=== PATIENT | female | born 1965 | race Caucasian/White ===

== ENCOUNTER 2019-01-03 01:44 | Emergency (ER) | payer BC ==
--- NOTE | 2019-01-03 02:45 | ED ---
GI/ HPI - HPI Summary HPI Summary: Pt is a 53 y/o F presenting to the ED with a chief complaint of vaginal bleeding. This has happened on two different occasions but it went away. This time it is worse and shes changed it twice. 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 The pt reports hx of HTN and kidney stones, and FHx of breast cancer. - History of Current Complaint Chief Complaint: EDVaginalBleeding Time Seen by Provider: 01/03/19 02:14 Stated Complaint: VAGINAL BLEEDING Hx Obtained From: Patient Onset/Duration: Started Hours Ago, Still Present Timing: Constant, Lasting Hours Severity: Mild Current Severity: Mild Vaginal Bleeding Description: Bright Red Number of Pads per Hour: 2 - since onset Pain Intensity: 0 Location of Pain: None Aggravating Factor(s): Nothing Alleviating Factor(s): Nothing - Allergy/Home Medications Allergies/Adverse Reactions: Allergies Allergy/AdvReac Type Severity Reaction Status Date / Time No Known Allergies Allergy Verified 01/03/19 01:50 Home Medications: Home Medications Losartan/Hydrochlorothiazide [Losartan-Hctz 50-12.5 mg Tab] 1 tab PO DAILY 01/03 [History Confirmed 01/03/19] amLODIPine TAB* [Norvasc 5 mg TAB*] 5 mg PO DAILY 01/03/19 [History Confirmed ] PMH/Surg Hx/FS Hx/Imm Hx Previously Healthy: Yes History: Reports: Hx Kidney Stones - Hx OF, CURRENT, LFT Sensory History: Reports: Hx Contacts or Glasses - WILL WEAR GLASSES Opthamlomology History: Reports: Hx Contacts or Glasses - WILL WEAR GLASSES - Surgical History Surgery Procedure, Year, and Place: 3 EPISODES OF KIDNEY STONES [facility] Hx Anesthesia Reactions: No Infectious Disease History: No Infectious Disease History: Denies: Traveled Outside the [place] in Last 30 Days - Family History Known Family History: Negative: Renal Disease - Social History Alcohol Use: None Substance Use Type: Reports: None Smoking Status (MU): Never Smoked Tobacco Have You Smoked in the Last Year: No Review of Systems Negative: Fever Positive: other - vaginal bleeding Neurological: Negative - dizziness Negative: Syncope All Other Systems Reviewed And Are Negative: Yes Physical Exam - Summary Physical Exam Summary: VITAL SIGNS: Reviewed. GENERAL: Patient is an obese female who is lying comfortable in the stretcher. Patient is not in any acute respiratory distress. HEAD AND FACE: No signs of trauma. No ecchymosis, hematomas or skull depressions. No sinus tenderness. EYES: PERRLA, EOMI x 2, No injected conjunctiva, no nystagmus. EARS: Hearing grossly intact. Ear canals and tympanic membranes are within normal limits. MOUTH: Oropharynx within normal limits. NECK: Supple, trachea is midline, no adenopathy, no JVD, no carotid bruit, no c- spine tenderness, neck with full ROM. CHEST: Symmetric, no tenderness at palpation LUNGS: Clear to auscultation bilaterally. No wheezing or crackles. CVS: Regular rate and rhythm, S1 and S2 present, no murmurs or gallops appreciated. ABDOMEN: Soft, non-tender. No signs of distention. No rebound no guarding, and no masses palpated. Bowel sounds are normal. EXTREMITIES: FROM in all major joints, no edema, no cyanosis or clubbing. NEURO: Alert and oriented x 3. No acute neurological deficits. Speech is normal and follows commands. SKIN: Dry and warm : mild vaginal bleeding, cervical polyp, cystocele. Unable to palpate uterus due to obesity. Triage Information Reviewed: Yes Vital Signs On Initial Exam: Initial Vitals Temp Pulse Resp BP Pulse Ox 97.7 F 98 16 199/99 98 01/03/19 01:45 01/03/19 01:45 01/03/19 01:45 01/03/19 01:45 01/03/19 01:45 Vital Signs Reviewed: Yes Diagnostics - Vital Signs Vital Signs Temp Pulse Resp BP Pulse Ox 01/03/19 02:20 97 207/100 96 01/03/19 02:19 97 215/118 98 01/03/19 02:17 104 98 01/03/19 01:45 97.7 F 98 16 199/99 98 - Laboratory Lab Statement: Any lab studies that have been ordered have been reviewed, and results considered in the medical decision making process. GIGU Course/Dx - Course Course Of Treatment: Pt is a 53 y/o F presenting to the ED with a chief complaint of vaginal bleeding. The pt is postmenopausal, and PE shows a cystocele and cervical polyp. She will be discharged with instructions to follow up with her SONOGRAPHER urgently, and with diagnoses of postmenopausal bleeding, cystocele, and cervical polyp. No US was done due to no missile tracking technician being available at this time. - Diagnoses Provider Diagnoses: Postmenopausal bleeding, Cystocele, Cervical polyp Discharge - Sign-Out/Discharge Documenting (check all that apply): Patient Departure Patient Received Moderate/Deep Sedation with Procedure: No - Discharge Plan Condition: Stable Disposition: HOME Referrals: Tram Amos MD [Primary Care Provider] - Additional Instructions: PLEASE FOLLOW UP WITH YOUR SONOGRAPHER AN URGENT CONSULT. RETURN TO THE EMERGENCY DEPARTMENT WITH ANY NEW OR WORSENING SYMPTOMS. - Attestation Statements Document Initiated by Scribe: Yes Documenting Scribe: Tammy Espinoza Provider For Whom Enaibe is Documenting (Include Credential): Jerardo De La Paz MD. Scribe Attestation: Tammy Block scribed for Jerardo De La Paz MD. on 01/03/19 at 0246. Status of Scribe Document: Ready
[2019-01-03 02:56] VITALS: BP 199/101
== END 2019-01-03 02:55 | disposition home or self-care (01) ==
LOC: ED 01:44
DX: N95.0 Postmenopausal bleeding (principal); N81.10 Cystocele, unspecified; N84.1 Polyp of cervix uteri; I10 Essential (primary) hypertension; Z87.442 Personal history of urinary calculi
CPT/HCPCS: 99282

== ENCOUNTER → 2019-02-06 18:14 | Emergency (ER) | payer BC ==
--- OUTSIDE RECORDS SUMMARY | 2019-02-06 18:43 | XMS REPORT | Continuity of Care Document ---
:1965 External Reference #:[id number] Author Name Dakota Maurice M.D. Address [address] [place] [address] Care Team Providers Name Role Phone Tram Amos MD. Primary Care Physician Unavailable Payers Date Identification Numbers Payment Provider Subscriber Policy Number: [id number] [employer]/[facility] Curtis Cummins PayID: [id number] [address] [address] [place] [address] Advance Directives Description No Information Available Problems Description No Information Family History Date Family Member(s) Observation Comments Father due to [place] () Mother due to Old Age () Children 3 2 children adopted out First Daughter A&W Siblings 3 2 sons unknown health hx, adopted out at First Brother A&W First Sister A&W Paternal Grandfather due to [place] () Paternal Grandmother due to Aneurysm () Maternal Grandfather due to [place] () Maternal Grandmother due to Cerebral () Hemorrhage Social History Type Date Description Comments Sex Unknown Education Highest level completed, 1 year of college Marital Status Lives With Pets None Occupation [employer] at [employer] Tobacco Use Start: Unknown Never Smoked Cigarettes ETOH Use Denies alcohol use Recreational Drug Use Denies Drug Use Exercise Type/Frequency Does not exercise Seat Belt/Car Seat Always uses seat belt Currently Active Patient is currently sexually active Allergies, Adverse Reactions, Alerts Description No Known Drug Allergies Medications Medication Date Status Form Strength Qnty SIG Indications Ordering Provider Losartan Active Tablets 100-12.5mg 1 by Unknown Potassium/Hydr 00 mouth ochlorothiazid every day e Amlodipine Active Tablets 5mg 1 by Unknown Besylate 00 mouth every day Medications Administered in Office Medication Date Status Form Strength Qnty SIG Indications Ordering Provider PT SCRN Tbco 03/04/2 Administered Injection Dakota Hutchins Id as Non User Saritha Maurice M.D. SCRN Tammy Perf Administered Injection Dakota Hutchins RSLTS Not Doc 019 Josué Maurice Immunizations Description No Information Available Vital Signs Date Vital Result Comment 01/29/2019 9:48am BP Systolic 150 mmHg BP Diastolic 92 mmHg Height 62 inches 5'2" Weight 192.00 lb BMI (Body Mass Index) 35.1 kg/m2 Last Menstrual Period [id number] Results Test Date Facility Test Result H/L Range Note Laboratory test 01/29/2019 [facility] Cytology <pending> [place] [address] [phone] Procedures Date Code Description Status 11/28/2017 [id number] Mammogram Completed Encounters Type Date Location Provider Dx Diagnosis Office Visit 01/29/2019 [facility] Dakota Maurice, 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 at [facility]01/29/2019 - Dakota Maurice M.D.N84.0 Polyp of corpus uteriComments:will need resection in or . probably with hysteroscopic guidance.
--- NOTE | 2019-02-06 21:04 | ED ---
Head Injury - HPI Summary HPI Summary: Complains of facial abrasions, nose swelling status post mechanical fall today. States she states she tripped on arrhythmogenic concrete and fell on her face. Denies LOC, ADAMSON, N/V, vision change, AMS, oral pain or bleeding, neck pain , any other pain injuries or symptoms. No anti-coag. - History Of Current Complaint Chief Complaint: EDHeadInjury Stated Complaint: I TOOK A FALL HIT MY HEAD PRETTY GOOD PER PT Time Seen by Provider: 02/06/19 20:44 Hx Obtained From: Patient Mechanism Of Injury: Fall From A Standing Position Onset/Duration: Started Hours Ago Onset of Pain: Immediate Severity Currently: Mild Severity Initially: Mild Pain Intensity: 3 Pain Scale Used: 0-10 Numeric Location of Head Injury: Frontal Character: Dull Associated Signs And Symptoms: Negative - Allergies/Home Medications Allergies/Adverse Reactions: Allergies Allergy/AdvReac Type Severity Reaction Status Date / Time No Known Allergies Allergy Verified 01/03/19 01:50 PMH/Surg Hx/FS Hx/Imm Hx Endocrine/Hematology History: Denies: Hx Anticoagulant Therapy Cardiovascular History: Denies: Hx Pacemaker/ICD History: Reports: Hx Kidney Stones - Hx OF, CURRENT, LFT Sensory History: Reports: Hx Contacts or Glasses - WILL WEAR GLASSES Opthamlomology History: Reports: Hx Contacts or Glasses - WILL WEAR GLASSES EENT History: Denies: Hx Deafness Neurological History: Denies: Hx Developmental Delay Psychiatric History: Denies: Hx Autism - Surgical History Surgery Procedure, Year, and Place: 3 EPISODES OF KIDNEY STONES [facility] Hx Anesthesia Reactions: No Infectious Disease History: No Infectious Disease History: Denies: Traveled Outside the [place] in Last 30 Days - Family History Known Family History: Negative: Renal Disease - Social History Alcohol Use: None Substance Use Type: Reports: None Smoking Status (MU): Never Smoked Tobacco Have You Smoked in the Last Year: No Review of Systems Constitutional: Negative Eyes: Negative Positive: Other Cardiovascular: Negative Respiratory: Negative Gastrointestinal: Negative Genitourinary: Negative Musculoskeletal: Negative Skin: Other Neurological: Negative Psychological: Normal All Other Systems Reviewed And Are Negative: Yes Physical Exam - Summary Physical Exam Summary: Swelling and ecchymosis to the bridge of nose. No septal hematomas bilaterally. Patient able to breathe through bilateral nares. Abrasion to bridge of nose and forehead. Mild swelling to forehead beneath abrasion. Full range of motion of jaw. Neuro exam normal. No oral trauma noted. Triage Information Reviewed: Yes Vital Signs On Initial Exam: Initial Vitals Temp Pulse Resp BP Pulse Ox 97.9 F 85 16 186/99 98 02/06/19 18:31 02/06/19 18:31 02/06/19 18:31 02/06/19 18:31 02/06/19 18:31 Vital Signs Reviewed: Yes Appearance: Positive: Well-Appearing Skin: Positive: Warm Head/Face: Positive: Other Eyes: Positive: Normal ENT: Positive: Normal ENT inspection Dental: Negative: Dental Fracture @, Bleeding Neck: Positive: Supple Respiratory/Lung Sounds: Positive: Clear to Auscultation Cardiovascular: Positive: Normal Abdomen Description: Positive: Nontender Musculoskeletal: Positive: Normal Neurological: Positive: Normal Psychiatric: Positive: Normal AVPU Assessment: Alert - [place] Coma Scale Best Eye Response: 4 - Spontaneous Best Motor Response: 6 - Obeys Commands Best Verbal Response: 5 - Oriented Coma Scale Total: 15 Diagnostics - Vital Signs Vital Signs Temp Pulse Resp BP Pulse Ox 02/06/19 18:31 97.9 F 85 16 186/99 98 - Laboratory Lab Statement: Any lab studies that have been ordered have been reviewed, and results considered in the medical decision making process. Head Injury Course/Dx Course Of Treatment: Complains of facial abrasions, nose swelling status post mechanical fall today. States she states she tripped on arrhythmogenic concrete and fell on her face. Denies LOC, ADAMSON, N/V, vision change, AMS, oral pain or bleeding, neck pain, any other pain injuries or symptoms. No anti- coag. Physical exam:Swelling and ecchymosis to the bridge of nose. No septal hematomas bilaterally. Patient able to breathe through bilateral nares. Abrasion to bridge of nose and forehead. Mild swelling to forehead beneath abrasion. Full range of motion of jaw. Neuro exam normal. No oral trauma noted. Vital signs within normal limits. Patient does not meet criteria for head CT. Patient advised to allow couple days for nasal swelling to decrease and to follow-up with ENT if symptoms persist. Patient understands and approves of plan. - Diagnoses Provider Diagnoses: Fall, Head injury, Abrasion of face Discharge - Sign-Out/Discharge Documenting (check all that apply): Patient Departure Patient Received Moderate/Deep Sedation with Procedure: No - Discharge Plan Condition: Stable Disposition: HOME Patient Education Materials: Concussion (ED), Head Injury (ED), Abrasion (ED) Referrals: Tram Amos MD [Primary Care Provider] - Gianluca Linares MD [Medical Doctor] - Additional Instructions: Keep wounds clean and dry. May wash with warm running water and soap. Ibuprofen or Tylenol for pain. Follow-up with ear nose and throat Dr. Linares for further evaluation Return to the ED for any new or worsening symptoms. - Billing Disposition and Condition Condition: STABLE Disposition: Home
[2019-02-06 21:37] VITALS: BP 171/99
== END | disposition home or self-care (01) ==
LOC: ED 18:14
DX: S00.81XA Abrasion of other part of head, initial encounter (principal); S09.90XA Unspecified injury of head, initial encounter; W01.0XXA Fall on same level from slipping, tripping and stumbling without subsequent striking against object, initial encounter; Y92.9 Unspecified place or not applicable; Z87.442 Personal history of urinary calculi
CPT/HCPCS: 99282